=== PATIENT | male | born 1980 | race Caucasian/White ===

== ENCOUNTER → 2017-03-20 | Outpatient (CLI) | payer BC ==
--- NOTE | 2017-03-21 07:30 | CT ---
Procedure: CT ABDOMEN PELVIS WITHOUT IV CONTRAST Exam Date: 03/20/2017 Ordering Provider: Lina Devries Clinical Indication: R31.9, hematuria Comparison: None TECHNIQUE: Unenhanced 5 mm images were taken through the abdomen and pelvis without the administration of oral contrast material. Coronal and sagittal reformatted images were generated. This exam was performed according to our departmental dose optimization program which includes use of automated exposure control, adjustment of the mA and/or kV according to patient size and/or use of iterative reconstruction technique. FINDINGS: Lower chest: Nonacute Abdomen: Liver and biliary system: No gross liver lesions on this noncontrast examination. No biliary ductal dilatation. No calcified gallstones. Spleen: Unremarkable Pancreas: Unremarkable Adrenal glands: Unremarkable Kidneys, ureters, bladder: There is a 1.5 cm staghorn calculus in the lower pole the right kidney. 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 No stones seen within the right ureter. There is a 17 mm stone in the left renal pelvis. Additional punctate stone in the lower pole of the left kidney. Moderate hydronephrosis in the left kidney. No stones seen in the left ureter. Bladder is unremarkable. Lymph nodes: No lymphadenopathy Retroperitoneum, peritoneal cavity, abdominal wall : No ascites. No free intraperitoneal air. Vessels: No abdominal aortic aneurysm. Pelvis: Lymph nodes: No lymphadenopathy Peritoneal cavity: No pelvic free fluid Bowel: No bowel obstruction. Colonic diverticulosis without evidence of diverticulitis. Normal appendix. No bowel wall thickening. Pelvic organs: Prostate calcifications. Bones: Nonacute IMPRESSION: 1. Bilateral nephrolithiasis. 2. 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 3. Moderate hydronephrosis in the left kidney 4. Colonic diverticulosis without evidence of diverticulitis. Electronically signed by: Burak Farrell MD 03/21/2017 7:28 AM CDT
== END | disposition home or self-care (01) ==
LOC: CT 14:58
PROVIDERS: ATTEND Nurse Practitioner Family
DX: R31.9 Hematuria, unspecified (principal)

== ENCOUNTER → 2019-07-01 | Outpatient (CLI) | payer BC | LOC: LAB.O 10:40 | PROVIDERS: ATTEND Nurse Practitioner Family | DX: R30.0 Dysuria (principal); R31.9 Hematuria, unspecified ==

== ENCOUNTER → 2019-12-28 | Outpatient (CLI) | payer BC | LOC: LAB.O 06:37 | PROVIDERS: ATTEND Registered Nurse General Practice | DX: N30.01 Acute cystitis with hematuria (principal) ==